=== PATIENT | female | born 1955 | race Caucasian/White ===

== ENCOUNTER 2023-05-09 07:55 | Emergency (ER) | payer MEDICARE, SELFPAY ==
[2023-05-09 08:00] VITALS: BP 148/98; PULSE 93; RESP 16; TEMP 36.9; O2SAT 100; BMI 26.5
--- NOTE | 2023-05-09 08:25 | ED_ITS ---
HPI - General Adult General Chief complaint: Upper Respiratory Infection Stated complaint: SORE THROAT/LOSS OF VOICE Time Seen by Provider: 05/09/23 08:10 Source: patient Mode of arrival: walk-in Limitations: no limitations History of Present Illness HPI narrative: 68-year-old female presents for hoarse voice that she has had for 3 weeks. She saw her PCP about it who put her on a course of steroids that did not get better. She has been referred to ENT physician but she is waiting for approval. No fever or cough. No vomiting or diarrhea. She is a non-smoker and not diabetic. Related Data Previous Rx's Medication Instructions Recorded prednisone 10 mg tablet See Rx Instructions .Route 05/09/23 .COMPLEX #30 tabs Allergies Allergy/AdvReac Type Severity Reaction Status Date / Time No Known Drug Allergies Allergy Verified 05/09/23 08:06 Review of Systems ROS Narrative A ten point review of systems is negative except as noted above. PFSH PFSH Social History Smoking status: Never smoker Exam Narrative Exam Narrative: Nurses note and vital signs reviewed and patient is not hypoxic. General: The patient appears well and in no apparent distress. Patient is rest ing comfortably sitting on the examination chair Skin: Warm, dry, no pallor noted. There is no rash noted. Head: Normocephalic, atraumatic Eye: Normal conjunctiva, no drainage Ears, Nose, Mouth, and Throat: oral mucosa is moist. Nares patent. Mouth without vesicles. Voice is hoarse. No pharyngeal erythema or swelling. Uvula midline. She is handling her oral secretions well. No retropharyngeal swelling. Cardiovascular: Regular Rate and Rhythm Respiratory: Patient is in no distress, no accessory muscle use, lungs are clear to auscultation, no wheezing, rales or rhonchi GI: Soft and nontender Musculoskeletal: The patient has no evidence of calf tenderness, no pitting edema, symmetrical pulses noted bilaterally Neurological: A&O, normal speech Psychiatric: Cooperative Constitutional Vital Signs, click to edit/add: Last Vital Signs Temp 98.5 F 05/09/23 08:00 Pulse 93 H 05/09/23 08:00 Resp 16 05/09/23 08:00 BP 148/98 H 05/09/23 08:00 Pulse Ox 100 05/09/23 08:00 O2 Del Method Room Air 05/09/23 08:00 Course Vital Signs Vital signs: Vital Signs Temperature 98.5 F 05/09/23 08:00 Pulse Rate 93 H 05/09/23 08:00 Respiratory Rate 16 05/09/23 08:00 Blood Pressure 148/98 H 05/09/23 08:00 Pulse Oximetry 100 05/09/23 08:00 Oxygen Delivery Method Room Air 05/09/23 08:00 Temperature 98.5 F 05/09/23 08:00 Pulse Rate 93 H 05/09/23 08:00 Respiratory Rate 16 05/09/23 08:00 Blood Pressure 148/98 H 05/09/23 08:00 Pulse Oximetry 100 05/09/23 08:00 Oxygen Delivery Method Room Air 05/09/23 08:00 Medical Decision Making MDM Narrative Medical decision making narrative: The patient is given IM Solu-Medrol and prescribed prednisone. She was informed that if this does not improve she would need to follow-up with ENT and that process is already in place. There is no indication for imaging or antibiotics or any testing otherwise. Treatment diagnosis and follow-up were discussed with the patient. Differential Diagnosis Differential Diagnosis: Laryngitis, vocal cord mass Discharge Plan Discharge Chief Complaint: Upper Respiratory Infection Clinical Impression: Laryngitis Patient Disposition: Home, Self-Care Time of Disposition Decision: 08:22 Condition: Good Mode of Transportation: Private Vehicle Prescriptions / Home Meds: New prednisone 10 mg tablet See Rx Instructions .ROUTE .COMPLEX Qty: 30 0RF Rx Instructions: 4 by mouth daily for three days then 3 by mouth daily for three days then 2 by mouth daily for three days then 1 by mouth daily for three days Additional Instructions: Laryngitis Stand Alone Forms: Portal Instructions Referrals: NIRMAL BARAJAS [Primary Care Provider] - 1 week
[2023-05-09] MEDS: METHYLPREDNISOLONE SOD SUCC PF 125 MG/2 ML VIAL IM (08:28)
== END 2023-05-09 08:33 | disposition home or self-care (01) ==
PROVIDERS: Emergency Provider Emergency Medicine; PCP Internal Medicine
DX: J04.0 Acute laryngitis (principal)
CPT/HCPCS: 96374; 99284; J2930

== ENCOUNTER 2023-06-11 08:25 | Outpatient (OUT) | payer MEDICARE, SELFPAY ==
--- NOTE | 2023-06-11 08:28 | XR_ITS ---
[address] [address] Patient Name: SRINATH BAILEY MRN: [id number] date: 1955 Sex: F Assigned Patient Location: [facility] Current Patient Location: [facility] Accession/Order Number: [id number] Exam Date: 06/11/2023 08:40 Report Date: 06/11/2023 12:08 At the request of: FRANCES TELLEZ Procedure: XR DEXA axial skeleton EXAMINATION: XR DEXA axial skeleton, 06/11/2023 8:40 AM EDT HISTORY: Estrogen Deficiency E28.39 COMPARISON: 2021, 2019, 2017 TECHNIQUE: Dual-energy X-ray absorptiometry (DEXA) bone density study performed for the axial skeleton. HISTORY: Estrogen Deficiency E28.39 FINDINGS: Bone mineral density of the right femoral neck is 0.657 g/sq cm. T score -2.7. WHO classification: Osteoporosis Dual total femur bone mineral density is 0.730 g/sq cm. T score -2.2. WHO classification: Osteopenia XR/XR DEXA axial skeleton IMPRESSION: Osteoporosis. High fracture risk Electronically authenticated by: VICKY SOLORZANO Date: 06/11/2023 12:08
== END 2023-06-11 08:26 | disposition home or self-care (01) ==
LOC: RAD 08:25
PROVIDERS: PCP Internal Medicine; Visit Provider Physician Assistant
DX: E28.39 Other primary ovarian failure (principal); M81.0 Age-related osteoporosis without current pathological fracture
CPT/HCPCS: 77080

== ENCOUNTER 2023-07-11 11:12 | Outpatient (OUT) | payer MEDICARE, SELFPAY ==
--- NOTE | 2023-07-11 11:20 | MM_ITS ---
Patient Name: SRINATH BAILEY MR#: [id number] : 1955 Exam Date: 07/11/2023 Ordering Doctor: DR NIRMAL BARAJAS M.D. RADIOLOGY REPORT PROCEDURE: MM TOMOSYNTHESIS SCREENING BI COMPARISON: MG MAMM SCREEN 3D SOLIS CAD, 07/09/2022. MG MAMM SCREEN 3D SOILS CAD, 06/09/2021. MG MAMM SCREEN 3D SOLIS CAD, 06/07/2020. MG MAMM SOLIS SCRN W CAD DIG, 06/02/2013. INDICATIONS: Screening Calculator Name NCI Breast Cancer Risk Assessment Tool 5 Year Breast Cancer Risk 1.50% Lifetime Breast Cancer Risk 4.80% Personal Breast Cancer No Personal Ovarian Cancer No Treatments None Family Cancers Grandmother-maternal with breast cancer at age 60. LOCATION: [facility] BREAST COMPOSITION: There are scattered areas of fibroglandular density. FINDINGS: DIAGNOSTIC CATEGORY 2--BENIGN FINDING: RIGHT BREAST: No significant suspicious finding. Scattered benign-appearing calcifications are present. No significant change has occurred. LEFT BREAST: No significant suspicious finding. Scattered benign-appearing calcifications are present. Scattered benign-appearing lymph nodes are present. No significant change has occurred. RECOMMENDATIONS: ROUTINE MAMMOGRAM AND CLINICAL EVALUATION IN 12 MONTHS. PLEASE NOTE: A NORMAL MAMMOGRAM DOES NOT EXCLUDE THE POSSIBILITY OF BREAST CANCER. A CLINICALLY SUSPICIOUS PALPABLE LUMP SHOULD BE BIOPSIED. Dictated by: Anam Romano M.D. on 07/11/2023 at 16:01 Approved by: Anam Romano M.D. on 07/11/2023 at 16:14
== END 2023-07-11 11:13 | disposition home or self-care (01) ==
LOC: MAMMO 11:12
PROVIDERS: PCP Internal Medicine; Visit Provider Internal Medicine
DX: Z12.31 Encounter for screening mammogram for malignant neoplasm of breast (principal); Z80.3 Family history of malignant neoplasm of breast
CPT/HCPCS: 77063; 77067

== ENCOUNTER 2023-10-26 16:19 | Emergency (ER) | payer MEDICARE, SELFPAY ==
[2023-10-26 16:22] VITALS: BP 153/75; PULSE 86; O2SAT 96; BMI 25.5
--- NOTE | 2023-10-26 16:31 | CT_ITS ---
The [address] [address] Patient Name: SRINATH BAILEY MRN: [id number] date: 1955 Sex: F Assigned Patient Location: ED.MAIN Current Patient Location: ED.MAIN Accession/Order Number: [id number] Exam Date: 10/26/2023 16:51 Report Date: 10/26/2023 19:19 At the request of: FREEMAN SMALL Procedure: CT abdomen pelvis wo con EXAM: CT SCAN OF THE ABDOMEN AND PELVIS WITHOUT IV CONTRAST DATE OF EXAM: 10/26/2023 4:51 PM EDT HISTORY: left flank pain 68-year-old female with abdominal pain. Patient with left-sided flank pain. COMPARISON: None. TECHNIQUE: CT examination of the abdomen and pelvis with sagittal and coronal reformations was performed without intravenous contrast. CT dose lowering techniques were used, to include: automated exposure control, adjustment for patient size, and/or use of iterative reconstruction. CONTRAST: None. FINDINGS: Note: This exam is limited because some types of pathology may not be adequately demonstrated due to lack of contrast enhancement. Ball Worker/Lines & Tubes: Ball Worker demonstrates a nonobstructive bowel gas pattern. Lower Chest: Normal Free Air: None. Liver: The liver is enlarged. There is an area decreased attenuation which is seen in the region of the caudate lobe that measures 21 x 35 mm. Gallbladder: Removed Common Bile Duct: Normal Pancreas: Normal Spleen: Normal Adrenal Glands: Right: Normal. Left: Normal Kidneys: Right Kidney: Non obstructing bilateral nephrocalcinosis with a 3 mm stone in the lower pole may be vascular. Right Ureter: Normal. Left Kidney: Normal. Left Ureter: Normal. GI Tract: Distal Esophagus: Normal. Stomach: Normal Small Bowel: Normal Appendix: Normal coronal image 33 of series 5 Large Bowel: Diverticulosis. Mesentery/Peritoneum: Normal Vasculature: Vascular calcifications demonstrated. Lymph Nodes: Normal Abdominal Wall: Normal Bladder: Normal Reproductive: Normal Musculoskeletal: Osseous structures demonstrate anterolisthesis of L4 and L5. There is also compression fracture which does not appear to be acute L1. Free Fluid: None. CT/CT abdomen pelvis wo con IMPRESSION: 1. Diverticulosis. No CT evidence for acute diverticulitis. 2. Area decreased attenuation near the caudate lobe of the liver incompletely imaged on this exam. This is not completely typical for a cyst. Please correlate with patient's medical history. Multiphasic liver protocol MRI abdomen may help better delineate. 3. Nonobstructing right-sided nephrocalcinosis. 4. Normal appendix. Electronically authenticated by: ZEHRA FRIEND Date: 10/26/2023 19:19
--- NOTE | 2023-10-26 16:36 | ED_ITS ---
<Statement entered by Catarina Barfield MD - 10/26/23 19:23> This documentation has been reviewed and approved. HPI HPI - Back Pain/Injury General Chief Complaint: Back Pain/Injury Stated Complaint: SEVERE BACK PAIN Time Seen by Provider: 10/26/23 16:28 Source: patient Mode of arrival: walk-in History of Present Illness HPI Narrative: 68-year-old female presents here with a chief complaint of 1 day of left flank pain. Patient has a history of 2 L4 spine surgeries and 2016 2017. She states she was watching TV last evening went to bed and to start building a pulling or pain sensation. Denies any history of kidney stones. She has left flank pain today. Denies any nausea or vomiting. She denies any weakness. She has point tenderness to the left CVA region. Related Data Previous Rx's ?Medication ?Instructions ?Recorded prednisone 10 mg tablet See Rx Instructions .Route 05/09/23 .COMPLEX #30 tabs methocarbamol 500 mg tablet 500 mg PO TID PRN pain #10 tabs 10/26/23 prednisone 20 mg tablet 20 mg PO BID 7 days #14 tabs 10/26/23 Allergies Allergy/AdvReac Type Severity Reaction Status Date / Time No Known Drug Allergies Allergy Verified 05/09/23 08:06 Opioid HPI Opioid Management Most Recent Opioid Data: Last MAY Pain Assessment 10/26/23 18:14 Review of Systems ROS Narrative All Systems are negative except as noted/marked.All systems reviewed and otherwise negative PFSH PFS Social History Smoking status: Never smoker Exam Narrative Exam Narrative: Nurses note and vital signs reviewed and patient is not hypoxic. General: The patient appears well and in no apparent distress. Patient is resting comfortably on cart. Skin: Warm, dry, no pallor noted. There is no rash noted. Head: Normocephalic, atraumatic Eye: Normal conjunctiva, no drainage, EOMI. PERRL Ears, Nose, Mouth, and Throat: oral mucosa is moist. Nares patent. Mouth without vesicles. Ear canals patent. Tm's without Erythema Cardiovascular: Regular Rate and Rhythm Respiratory: Patient is in no distress, no accessory muscle use, lungs are clear to auscultation, no wheezing, rales or rhonchi Back: left flank pain, tender to palpation left cva GI: Normal bowel sounds, no tenderness to palpation, no masses appreciated. No rebound, guarding, or rigidity noted. Musculoskeletal:ambulating, no lower extremity weakness, The patient has no evidence of calf tenderness, no pitting edema, symmetrical pulses noted bilaterally Neurological: A&O x4, normal speech Psychiatric: Cooperative Constitutional Vital Signs, click to edit/add: Last Vital Signs Pulse 86 10/26/23 16:22 Resp 20 10/26/23 16:22 BP 153/75 H 10/26/23 16:22 Pulse Ox 96 10/26/23 16:22 O2 Del Method Room Air 10/26/23 16:22 Course Vital Signs Vital signs: Vital Signs Pulse Rate 86 10/26/23 16:22 Respiratory Rate 20 10/26/23 16:22 Blood Pressure 153/75 H 10/26/23 16:22 Pulse Oximetry 96 10/26/23 16:22 Oxygen Delivery Method Room Air 10/26/23 16:22 Pulse Rate 86 10/26/23 16:22 Respiratory Rate 20 10/26/23 16:22 Blood Pressure 153/75 H 10/26/23 16:22 Pulse Oximetry 96 10/26/23 16:22 Oxygen Delivery Method Room Air 10/26/23 16:22 MDM - Back Pain/Injury MDM Narrative Medical decision making narrative: 68-year-old female presents here with a chief complaint of 1 day of left flank pain. Patient has a history of 2 L4 spine surgeries and 2016 2017. She states she was watching TV last evening went to bed and to start building a pulling or pain sensation. Denies any history of kidney stones. She has left flank pain today. Denies any nausea or vomiting. She denies any weakness. She has point tenderness to the left CVA region. Patient presented here to the emergency room chief complaint of lower lumbar pain she has a history of back issues with 2 previous surgeries to the L4-L5 region. CT scan was performed today delay of treatment was due to waiting on CT results CT abdomen pelvis was performed patient was given IV Toradol morphine and Zofran for her pain. Her symptoms have improved. Patient will follow-up with her primary care physician and then reach out to [facility] orthopedics. She had seen a lumbar specialist in [place] previously but they are no longer in practice. Patient showed no signs of quad equina denied any numbness ting or loss of bowel or bladder function. She stable to be discharged to home. Reasons to return to the emergency room were discussed. Patient was also made aware that there is a cyst on her liver that needs also to be reevaluated by her primary care physician and possibly have MRI in the future. Patient agrees with plan of care. Differential Diagnosis Differential diagnosis: Likely lumbar radiculopathy, sciatica, strain of lumbar region and pyelonephritis Medical Records Attestation: I reviewed the patient's medical records. Lab Data Attestation: I reviewed the patient's lab results. Labs: Lab Results 10/26/23 10/26/23 Range/Units 16:40 16:46 WBC 8.7 (4.0-11.0) 10^3/uL RBC 4.58 (4.20-5.40) 10^6/uL Hgb 14.1 (12.0-16.0) g/dL Hct 41.9 (36.0-48.0) % MCV 91.5 (81.0-99.0) fL MCH 30.8 (26.7-34.0) pg MCHC 33.7 (29.9-35.2) g/dL RDW 13.4 (11.0-15.0) % Plt Count 227 (150-450) 10^3/uL MPV 10.8 (9.5-13.5) fL Neut % (Auto) 61.2 (43.0-75.0) % Lymph % (Auto) 24.5 (20.5-60.0) % [place] % (Auto) 8.6 (1.7-12.0) % Eos % (Auto) 4.6 (0.9-7.0) % Baso % (Auto) 0.8 (0.2-2.0) % Neut # (Auto) 5.3 (1.4-6.5) 10^3/uL Lymph # (Auto) 2.1 (1.2-3.8) 10^3/uL [place] # (Auto) 0.7 (0.3-0.8) 10^3/uL Eos # (Auto) 0.4 (0.0-0.7) 10^3/uL Baso # (Auto) 0.1 (0.0-0.1) 10^3/uL Abs Immat Gran (auto) 0.03 (0.00-0.03) 10^3/uL Imm/Tot Granulo (auto) 0.3 (0.0-0.5) % Sodium 140 (136-145) mmol/L Potassium 4.0 (3.5-5.1) mmol/L Chloride 103 (98-107) mmol/L Carbon Dioxide 26.8 (21.0-32.0) mmol/L Anion Gap 14.2 BUN 13.0 (7.0-18.0) mg/dL Creatinine 0.67 (0.55-1.02) mg/dL Est GFR ( Amer) >60 (>=60) Est GFR (Non-Af Amer) >60 (>=60) BUN/Creatinine Ratio 19.4 Glucose 91 (74-106) mg/dL Calcium 9.2 (8.5-10.1) mg/dL Total Bilirubin 0.7 (0.2-1.0) mg/dL AST 28 (15-37) U/L ALT 42 (14-59) U/L Alkaline Phosphatase 90 (46-116) U/L Total Protein 7.1 (6.4-8.2) g/dL Albumin 3.7 (3.4-5.0) g/dL Globulin 3.4 g/dL Albumin/Globulin Ratio 1.1 Urine Color Lt. yellow (YELLOW) Urine Clarity Clear (CLEAR) Urine pH 6.0 (5.0-9.0) Ur Specific [place] <=1.005 A (1.005-1.025) Urine Protein Negative (NEG/TRACE) mg/dL Urine Glucose (UA) Negative (NEGATIVE) mg/dL Urine Ketones Negative (NEGATIVE) mg/dL Urine Occult Blood Negative (NEGATIVE) Urine Nitrite Negative (NEGATIVE) Urine Bilirubin Negative (NEGATIVE) Urine Urobilinogen 0.2 (0.2-1.0) EU/dL Ur Leukocyte Esterase Negative (NEGATIVE) Urine RBC 0-2 (0-2) #/HPF Urine WBC None seen (NONE SEEN) #/HPF Ur Squamous Epith Cells Rare (NONE/RARE) #/LPF Urine Crystals None seen (None Seen) #/HPF Urine Bacteria None seen (NONE SEEN) #/HPF Urine Casts None seen (NONE SEEN) #/LPF Urine Mucus None seen (NONE SEEN) Imaging Data CT scan - abdomen: Radiologist's impression: ITS Impressions Abdomen/Pelvis CT 10/26/23 16:31 IMPRESSION: 1. Diverticulosis. No CT evidence for acute diverticulitis. 2. Area decreased attenuation near the caudate lobe of the liver incompletely imaged on this exam. This is not completely typical for a cyst. Please correlate with patient's medical history. Multiphasic liver protocol MRI abdomen may help better delineate. 3. Nonobstructing right-sided nephrocalcinosis. 4. Normal appendix. Electronically authenticated by: ZEHRA FRIEND Date: 10/26/2023 19:19 Discharge Plan Discharge Stand Alone Forms: Portal Instructions Chief Complaint: Back Pain/Injury Clinical Impression: Back pain Patient Disposition: Home, Self-Care Time of Disposition Decision: 19:33 Condition: Good Prescriptions / Home Meds: New prednisone 20 mg tablet 20 mg PO BID 7 Days Qty: 14 0RF methocarbamol 500 mg tablet 500 mg PO TID PRN (Reason: pain) Qty: 10 0RF No Action prednisone 10 mg tablet See Rx Instructions .ROUTE .COMPLEX Qty: 30 0RF Rx Instructions: 4 by mouth daily for three days then 3 by mouth daily for three days then 2 by mouth daily for three days then 1 by mouth daily for three days Print Language: Welsh Instructions: Acute Low Back Pain (ED), Back Pain (ED) Referrals: NIRMAL BARAJAS [Primary Care Provider] - 1 week
[2023-10-26] MEDS: ONDANSETRON PF 4 MG/2 ML VIAL IV (16:46)
[2023-10-26] MEDS: KETOROLAC TROMETHAMINE 30 MG/ML VIAL IVP (16:46)
[2023-10-26] MEDS: 0.9 % SODIUM CHLORIDE 1,000 ML 1000 ML IV (16:46)
[2023-10-26 16:56] LABS: Basophils Absolute Auto 0.1 10^3/uL (0.0-0.1); Basophils Percent Auto 0.8 % (0.2-2.0); Eosinophils Absolute Auto 0.4 10^3/uL (0.0-0.7); Eosinophils Percent Auto 4.6 % (0.9-7.0); Hematocrit 41.9 % (36.0-48.0); Hemoglobin 14.1 g/dL (12.0-16.0); Immature Granulocytes Abs Auto 0.03 10^3/uL (0.00-0.03); Immature Granulocytes Pct Auto 0.3 % (0.0-0.5); Lymphocytes Absolute Auto 2.1 10^3/uL (1.2-3.8); Lymphocytes Percent Auto 24.5 % (20.5-60.0); Mean Corpuscular HGB Conc 33.7 g/dL (29.9-35.2); Mean Corpuscular Hemoglobin 30.8 pg (26.7-34.0); Mean Corpuscular Volume 91.5 fL (81.0-99.0); Mean Platelet Volume 10.8 fL (9.5-13.5); Monocytes Absolute Auto 0.7 10^3/uL (0.3-0.8); Monocytes Percent Auto 8.6 % (1.7-12.0); Neutrophils Absolute Auto 5.3 10^3/uL (1.4-6.5); Neutrophils Percent Auto 61.2 % (43.0-75.0); Platelet Count 227 10^3/uL (150-450); Red Blood Count 4.58 10^6/uL (4.20-5.40); Red Cell Distribution Width 13.4 % (11.0-15.0); White Blood Count 8.7 10^3/uL (4.0-11.0)
[2023-10-26 16:57] LABS: Bilirubin Urine NEGATIVE (NEGATIVE); Blood Urine NEGATIVE (NEGATIVE); Clarity Urine CLEAR (CLEAR); Color Urine LT. YELLOW (YELLOW); Glucose Urine UA NEGATIVE (NEGATIVE); Ketones Urine NEGATIVE (NEGATIVE); Leukocyte Esterase Urine NEGATIVE (NEGATIVE); Nitrite Urine NEGATIVE (NEGATIVE); Protein Urine NEGATIVE (NEG/TRACE); Specific Gravity Urine <=1.005 (1.005-1.025); Urobilinogen Urine 0.2 EU/dL (0.2-1.0)
[2023-10-26 17:08] LABS: Alanine Aminotransferase 42 U/L (14-59); Albumin Globulin Ratio 1.1; Albumin Level 3.7 g/dL (3.4-5.0); Alkaline Phosphatase 90 U/L (46-116); Anion Gap 14.2; Aspartate Amino Transferase 28 U/L (15-37); BUN Creatinine Ratio 19.4; Bilirubin Total 0.7 mg/dL (0.2-1.0); Calcium 9.2 mg/dL (8.5-10.1); Carbon Dioxide 26.8 mmol/L (21.0-32.0); Chloride 103 mmol/L (98-107); Estimated GFR (African America >60 (>=60); Estimated GFR (Non-African Ame >60 (>=60); Globulin 3.4 g/dL; Glucose 91 mg/dL (74-106); Sodium 140 mmol/L (136-145); Total Protein 7.1 g/dL (6.4-8.2)
[2023-10-26 17:11] LABS: Bacteria Urine NONE SEEN #/HPF (NONE SEEN); Cast Seen? NONE SEEN #/LPF (NONE SEEN); Crystals Seen? None Seen #/HPF (None Seen); Mucus Urine NONE SEEN (NONE SEEN); RBC Urine 0-2 #/HPF (0-2); Squamous Epithelial Cell Urine RARE #/LPF (NONE/RARE); WBC Urine NONE SEEN #/HPF (NONE SEEN)
[2023-10-26] MEDS: CYCLOBENZAPRINE HCL 10 MG TABLET PO (18:14)
[2023-10-26] MEDS: MORPHINE SULFATE 2 MG/ML SYRINGE IV (18:14)
[2023-10-26] MEDS: OXYCODONE HCL/ACETAMINOPHEN 5MG/325MG 1 TAB PO (19:51)
== END 2023-10-26 20:02 | disposition home or self-care (01) ==
PROVIDERS: Physician Assistant; Emergency Provider Emergency Medicine; PCP Internal Medicine
DX: M54.9 Dorsalgia, unspecified (principal); Z98.890 Other specified postprocedural states
CPT/HCPCS: 36415; 74176; 80053; 81001; 85025; 96374; 96375; 99285; J1885; J2270; J2405

== ENCOUNTER 2023-10-31 06:13 | Observation (INO) | payer MEDICARE, SELFPAY ==
[2023-10-31] VITALS (8 sets, daily range): BP systolic 104–174; BP diastolic 67–93; PULSE 68–95; TEMP 36.2–36.6; O2SAT 93–98; BMI 25.9; BMI 27.0
--- NOTE | 2023-10-31 06:46 | ED.GENADUL1 ---
HPI HPI - General Adult General Chief complaint: Back Pain/Injury Stated complaint: BACK PAIN Time Seen by Provider: 10/31/23 06:18 Source: patient and family Mode of arrival: walk-in Limitations: no limitations History of Present Illness HPI narrative: This 68-year-old female presents for evaluation of ongoing left-sided low back pain. The patient was seen here on Saturday for the pain. She has had 2 back surgeries in the past. She is tender in the left lower sacroiliac lumbar region that radiates down into her left lateral leg. She denies any injury. She has no loss of bowel or bladder control. She denies any weakness or numbness. She has not had any fever. She was given a prescription for Percocet and steroids and Robaxin when she was seen on Saturday in this emergency department. She then followed up with the nurse practitioner at her family physician's office and a requisition for an MRI was sent to her insurance company. She does not know when she is supposed to get the MRI. She had spine surgery twice on the L4-L5 vertebrae for pain that she states was similar to this. That was performed in [place] at the [facility] [place] which has since closed. She denies any chest pain or shortness of breath. She is anxious, tearful. Her request that I find out if her MRI has been approved by the insurance company and also request that she be admitted for pain control. Related Data Previous Rx's ?Medication ?Instructions ?Recorded prednisone 10 mg tablet See Rx Instructions .Route 05/09/23 .COMPLEX #30 tabs methocarbamol 500 mg tablet 500 mg PO TID PRN pain #10 tabs 10/26/23 prednisone 20 mg tablet 20 mg PO BID 7 days #14 tabs 10/26/23 Allergies Allergy/AdvReac Type Severity Reaction Status Date / Time No Known Drug Allergies Allergy Verified 10/31/23 06:20 Opioid HPI Opioid Management Risks, benefits, and alternatives of opioids discussed: Yes Review of Systems ROS Status of ROS 10 or more systems reviewed and unremarkable except as noted in history and below PFSH PFSH Social History Smoking status: Never smoker Exam Narrative Exam Narrative: Vital signs and Nursing Notes reviewed: Patient is afebrile with a normal pulse, blood pressure is elevated at 174/93, she is not hypoxic with pulse ox of 98% on room air General: Awake, alert, oriented, thin female, she is uncomfortable appearing and tearful, no respiratory distress HEENT: Normocephalic atraumatic, mucous membranes are moist and pink, eyes are clear, normal conjunctiva, vision is grossly intact Neck: Supple, no meningeal signs, no anterior or posterior cervical lymphadenopathy Chest: Lungs are clear to auscultation with good air entry, there is no wheezing rhonchi or rales appreciated no accessory muscle use, patient is speaking in complete sentences-no chest wall tenderness to palpation CVS: Regular rate and rhythm S1-S2, no murmurs rubs or gallops, pulses are brisk and equal bilaterally ABD: Soft, nondistended, nontender, no rebound guarding or rigidity, bowel sounds are normal, no pulsatile masses appreciated Extremities: Moving all extremities, no lower extremity tenderness or swelling noted, negative Homans' sign, pulses are brisk and equal bilaterally Musc: There is tenderness in the left lateral lumbar and sacroiliac region, there is no midline bony vertebral tenderness or step-off, there is no skin rash in this area, there is also tenderness in the lateral trochanteric aspect. She is able to raise both legs independently. There is no saddle anesthesia. Push pull of the lower extremity is normal. Skin: Normal in appearance without rash,pallor, petechiae or purpura Neuro: No focal deficits Constitutional Vital Signs, click to edit/add: Last Vital Signs Temp 97.9 F 10/31/23 06:17 Pulse 95 H 10/31/23 06:17 Resp 20 10/31/23 06:17 BP 174/93 H 10/31/23 06:17 Pulse Ox 98 10/31/23 06:17 O2 Del Method Room Air 10/31/23 06:17 Course Vital Signs Vital signs: Vital Signs Temperature 97.9 F 10/31/23 06:17 Pulse Rate 95 H 10/31/23 06:17 Respiratory Rate 20 10/31/23 06:17 Blood Pressure 174/93 H 10/31/23 06:17 Pulse Oximetry 98 10/31/23 06:17 Oxygen Delivery Method Room Air 10/31/23 06:17 Temperature 97.9 F 10/31/23 06:17 Pulse Rate 95 H 10/31/23 06:17 Respiratory Rate 20 10/31/23 06:17 Blood Pressure 174/93 H 10/31/23 06:17 Pulse Oximetry 98 10/31/23 06:17 Oxygen Delivery Method Room Air 10/31/23 06:17 Medical Decision Making Medical Records Medical records reviewed: Yes I reviewed the patient's medical records Discharge Plan Discharge Chief Complaint: Back Pain/Injury Clinical Impression: Lumbar radiculopathy Patient Disposition: Still a Patient Prescriptions / Home Meds: No Action prednisone 10 mg tablet See Rx Instructions .ROUTE .COMPLEX Qty: 30 0RF Rx Instructions: 4 by mouth daily for three days then 3 by mouth daily for three days then 2 by mouth daily for three days then 1 by mouth daily for three days prednisone 20 mg tablet 20 mg PO BID 7 Days Qty: 14 0RF methocarbamol 500 mg tablet 500 mg PO TID PRN (Reason: pain) Qty: 10 0RF Print Language: Macedonian Referrals: NIRMAL BARAJAS [Primary Care Provider] - 1 week
[2023-10-31] MEDS: 0.9 % SODIUM CHLORIDE 1,000 ML 1000 ML IV (06:53)
[2023-10-31] MEDS: KETOROLAC TROMETHAMINE 30 MG/ML VIAL IVP ×3 (07:01→19:39)
[2023-10-31] MEDS: ONDANSETRON PF 4 MG/2 ML VIAL IV (07:01)
[2023-10-31] MEDS: HYDROMORPHONE HCL 1 MG/ML CARTRIDGE IV (07:01)
[2023-10-31] MEDS: DIAZEPAM 5 MG TABLET PO (07:01)
[2023-10-31] MEDS: MORPHINE SULFATE 2 MG/ML SYRINGE IV (09:12)
--- NOTE | 2023-10-31 09:46 | P.HP_ITS ---
HPI H&P: HPI History of Present Illness Chief complaint: BACK PAIN Narrative: Patient presented to the emergency room with increasing low back pain. This has been going on the last for 5 days. No inciting injury. She saw her PCP who is working on getting an outpatient MRI scan. Medications given at home not effective. She was given IV medications in the emergency room and still unable to ambulate. No loss of bowel or bladder control. When I saw patient in the emergency room, she was resting fairly comfortably in bed, did have pain with any motion in the bed. Opioid HPI Opioid Management Most Recent Pain and Opioid Data: Last MAY Pain Assessment 10/31/23 09:12 PFSH PFS Social History Smoking status: Never smoker Meds Home Medications and Allergies Home Medications ?Medication ?Instructions ?Recorded ?Confirmed ?Type prednisone 10 mg tablet See Rx Instructions .Route 05/09/23 10/31/23 Rx .COMPLEX #30 tabs methocarbamol 500 mg tablet 500 mg PO TID PRN pain #10 tabs 10/26/23 10/31/23 Rx prednisone 20 mg tablet 20 mg PO BID 7 days #14 tabs 10/26/23 10/31/23 Rx alendronate 70 mg tablet mg PO 10/31/23 History azelastine 137 mcg (0.1 %) nasal intranasal 10/31/23 History spray budesonide 160 mcg-glycopyr 9 inh inhalation 10/31/23 History mcg-formot 4.8 mcg/actuation HFA inhaler (Breztri Aerosphere) famotidine 20 mg tablet mg 10/31/23 History montelukast 10 mg tablet mg 10/31/23 History oxycodone-acetaminophen 5 mg-325 tab 10/31/23 History mg tablet pramipexole 1 mg tablet mg 10/31/23 History rosuvastatin 20 mg tablet mg 10/31/23 History tramadol 50 mg tablet mg 10/31/23 History Allergies Allergy/AdvReac Type Severity Reaction Status Date / Time No Known Drug Allergies Allergy Verified 10/31/23 06:20 Exam Constitutional Vital Signs, click to edit/add: Last Vital Signs Temp 97.9 F 10/31/23 06:17 Pulse 95 H 10/31/23 06:17 Resp 20 10/31/23 06:17 BP 146/77 H 10/31/23 09:31 Pulse Ox 98 10/31/23 06:17 O2 Del Method Room Air 10/31/23 06:17 Documenting provider has reviewed patient's vital signs: yes Common normals: apparent distress (Painful distress) Chest Common normals: inspection of chest normal Respiratory Common normals: normal respiratory effort and no retractions Cardio Common normals: regular rate, regular rhythm and no murmurs GI Common normals: Normal to inspection, nondistended, normoactive bowel sounds present Back & Pelvis Common normals: no CVA tenderness (Poor range of motion secondary to back pain. + right straight leg raise) Neuro Common normals: oriented x3, CN's II-XII intact bilaterally, moves all extremities and no focal motor deficits Assessment and Plan Assessment and Plan (1) Back pain: (2) Lumbar radiculopathy: Plan Admission findings: Sinus tachycardia, uncontrolled hypertension secondary to intractable low back pain with positive radiculopathy into right leg with positive straight leg but no motor deficits. Admit patient for Toradol, steroids, tizanidine. Physical therapy. Constipation-will try MiraLAX Asthma-uses home medications Hypercholesterolemia-Home medications Check on lab results Admission status: Patient admitted with intractable low back pain. Physical therapy, IV medications, medically necessary treatment likely to span 1 midnight. Observation status.
[2023-10-31 10:07] LABS: Basophils Absolute Auto 0.1 10^3/uL (0.0-0.1); Basophils Percent Auto 0.7 % (0.2-2.0); Eosinophils Absolute Auto 0.2 10^3/uL (0.0-0.7); Hematocrit 40.8 % (36.0-48.0); Hemoglobin 13.6 g/dL (12.0-16.0); Immature Granulocytes Abs Auto 0.03 10^3/uL (0.00-0.03); Immature Granulocytes Pct Auto 0.4 % (0.0-0.5); Lymphocytes Absolute Auto 2.1 10^3/uL (1.2-3.8); Lymphocytes Percent Auto 29.9 % (20.5-60.0); Mean Corpuscular HGB Conc 33.3 g/dL (29.9-35.2); Mean Corpuscular Hemoglobin 30.8 pg (26.7-34.0); Mean Corpuscular Volume 92.3 fL (81.0-99.0); Mean Platelet Volume 10.4 fL (9.5-13.5); Monocytes Absolute Auto 0.6 10^3/uL (0.3-0.8); Monocytes Percent Auto 7.8 % (1.7-12.0); Neutrophils Absolute Auto 4.1 10^3/uL (1.4-6.5); Neutrophils Percent Auto 58.2 % (43.0-75.0); Platelet Count 200 10^3/uL (150-450); Red Blood Count 4.42 10^6/uL (4.20-5.40); Red Cell Distribution Width 13.4 % (11.0-15.0); White Blood Count 7.1 10^3/uL (4.0-11.0)
[2023-10-31 11:04] LABS: Alanine Aminotransferase 40 U/L (14-59); Albumin Globulin Ratio 0.9; Albumin Level 3.3 g/dL (3.4-5.0); Alkaline Phosphatase 74 U/L (46-116); Anion Gap 8.6; Aspartate Amino Transferase 28 U/L (15-37); BUN Creatinine Ratio 26.3; Bilirubin Total 0.7 mg/dL (0.2-1.0); C Reactive Protein <0.50 mg/dL (<=0.50); Calcium 8.7 mg/dL (8.5-10.1); Carbon Dioxide 28.2 mmol/L (21.0-32.0); Chloride 102 mmol/L (98-107); Estimated GFR (African America >60 (>=60); Estimated GFR (Non-African Ame >60 (>=60); Globulin 3.5 g/dL; Glucose 94 mg/dL (74-106); Potassium 3.8 mmol/L (3.5-5.1); Sodium 135 mmol/L (136-145); Total Protein 6.8 g/dL (6.4-8.2)
[2023-10-31] MEDS: METHYLPREDNISOLONE SOD SUCC PF 125 MG/2 ML VIAL IVP ×3 (11:04→23:13)
[2023-10-31 12:58] LABS: Bilirubin Urine NEGATIVE (NEGATIVE); Blood Urine NEGATIVE (NEGATIVE); Clarity Urine CLEAR (CLEAR); Color Urine LT. YELLOW (YELLOW); Glucose Urine UA NEGATIVE (NEGATIVE); Ketones Urine NEGATIVE (NEGATIVE); Leukocyte Esterase Urine TRACE (NEGATIVE); Nitrite Urine NEGATIVE (NEGATIVE); Protein Urine NEGATIVE (NEG/TRACE); Specific Gravity Urine 1.015 (1.005-1.025); Urobilinogen Urine 0.2 EU/dL (0.2-1.0)
[2023-10-31] MEDS: LACTULOSE 10 GM/15 ML UD CUP 30 GM PO ×2 (13:02→21:11)
[2023-10-31 13:24] LABS: Bacteria Urine TRACE #/HPF (NONE SEEN); Cast Seen? NONE SEEN #/LPF (NONE SEEN); Crystals Seen? None Seen #/HPF (None Seen); Mucus Urine NONE SEEN (NONE SEEN); RBC Urine 0-2 #/HPF (0-2); Squamous Epithelial Cell Urine RARE #/LPF (NONE/RARE); WBC Urine 0-2 #/HPF (NONE SEEN)
--- NOTE | 2023-10-31 15:07 | SWNOTE1 ---
Medicare Outpatient Observation Notice reviewed and discussed with patient. Pt. verbalized understanding and signed the form. Original given to patient and copy placed in patient?s chart. SW met with pt to discuss dc needs. Pt lives at home with her . She is independent at home. She had 2 back surgeries in 2019. She has been doing great up until Saturday when started having pain again. Pt does not use any DME at home. Possible need for a walker at home, but per patient she does not feel she needs one. At this time pt has no anticipated discharge needs.
[2023-10-31] MEDS: IPRATROPIUM/ALBUTEROL SULFATE 3 ML AMPUL.NEB IH ×2 (16:49→23:18)
[2023-10-31] MEDS: FLUTICASONE PROPIONATE 50 MCG NASAL SPRAY 2 SPRAY NS (21:11)
[2023-10-31] MEDS: PRAMIPEXOLE 1 MG TABLET PO (21:11)
[2023-10-31] MEDS: TIZANIDINE HCL 4 MG TABLET PO (21:11)
[2023-10-31] MEDS: FAMOTIDINE 20 MG TABLET PO (21:11)
[2023-10-31] MEDS: BUDESONIDE 0.5 MG/2 ML AMPULE NEB IH (23:18)
[2023-11-01] MEDS: KETOROLAC TROMETHAMINE 30 MG/ML VIAL IVP ×2 (03:10→08:26)
[2023-11-01 03:14] VITALS: BP 138/60; PULSE 85; TEMP 36.5; O2SAT 96
[2023-11-01 04:53] VITALS: O2SAT 95
[2023-11-01] MEDS: OMEPRAZOLE 40 MG CAPSULE.DR PO (05:57)
[2023-11-01] MEDS: METHYLPREDNISOLONE SOD SUCC PF 125 MG/2 ML VIAL IVP (05:57)
[2023-11-01] MEDS: TIZANIDINE HCL 4 MG TABLET PO (05:57)
[2023-11-01 06:21] LABS: Basophils Percent Auto 0.2 % (0.2-2.0); Hematocrit 41.7 % (36.0-48.0); Hemoglobin 14.1 g/dL (12.0-16.0); Immature Granulocytes Abs Auto 0.05 10^3/uL (0.00-0.03); Immature Granulocytes Pct Auto 0.4 % (0.0-0.5); Lymphocytes Absolute Auto 0.7 10^3/uL (1.2-3.8); Mean Corpuscular HGB Conc 33.8 g/dL (29.9-35.2); Mean Corpuscular Hemoglobin 30.5 pg (26.7-34.0); Mean Corpuscular Volume 90.1 fL (81.0-99.0); Mean Platelet Volume 11.1 fL (9.5-13.5); Monocytes Absolute Auto 0.3 10^3/uL (0.3-0.8); Monocytes Percent Auto 2.3 % (1.7-12.0); Neutrophils Absolute Auto 12.2 10^3/uL (1.4-6.5); Neutrophils Percent Auto 92.1 % (43.0-75.0); Platelet Count 226 10^3/uL (150-450); Red Blood Count 4.63 10^6/uL (4.20-5.40); Red Cell Distribution Width 13.3 % (11.0-15.0); White Blood Count 13.2 10^3/uL (4.0-11.0)
[2023-11-01 06:39] LABS: Alanine Aminotransferase 46 U/L (14-59); Albumin Globulin Ratio 0.9; Albumin Level 3.3 g/dL (3.4-5.0); Alkaline Phosphatase 79 U/L (46-116); Aspartate Amino Transferase 26 U/L (15-37); BUN Creatinine Ratio 21.7; Bilirubin Total 0.5 mg/dL (0.2-1.0); Calcium 9.4 mg/dL (8.5-10.1); Carbon Dioxide 26.6 mmol/L (21.0-32.0); Chloride 102 mmol/L (98-107); Estimated GFR (African America >60 (>=60); Estimated GFR (Non-African Ame >60 (>=60); Globulin 3.8 g/dL; Glucose 142 mg/dL (74-106); Potassium 3.6 mmol/L (3.5-5.1); Sodium 136 mmol/L (136-145); Total Protein 7.1 g/dL (6.4-8.2)
[2023-11-01 07:38] VITALS: BP 130/71; PULSE 81; TEMP 36.4; O2SAT 95
[2023-11-01] MEDS: FAMOTIDINE 20 MG TABLET PO (08:27)
[2023-11-01] MEDS: MONTELUKAST SODIUM 10 MG TABLET PO (08:27)
--- NOTE | 2023-11-01 08:49 | CM.NOTE ---
Rounds made with Dr. Slaughter, pt will discharge to home today. No discharge needs identified.
--- NOTE | 2023-11-01 09:08 | P.DS_ITS ---
DS: Providers Provider Date of admission: 10/31/23 09:17 Primary care physician: NIRMAL BARAJAS Consults: 10/31/23 09:46 Consult to Pharmacy Routine Consulting Provider: Reason for consultation: Please [place] me when Med Rec is Updated Has provider been notified: No Occupational Therapy Eval and Treat Routine Reason for consultation: Only if needed for Rehab Has provider been notified: No Physical Therapy Eval and Treat Routine Reason for consultation: Eval and Treat Has provider been notified: No DS: Diagnosis Discharge Diagnosis (1) Back pain: (2) Lumbar radiculopathy: Plan Admission findings: Sinus tachycardia, uncontrolled hypertension secondary to intractable low back pain with positive radiculopathy into right leg with positive straight leg but no motor deficits. Admit patient for Toradol, steroids, tizanidine. Physical therapy. Constipation-will try MiraLAX Asthma-uses home medications Hypercholesterolemia-Home medications Check on lab results Admission status: Patient admitted with intractable low back pain. Physical therapy, IV medications, medically necessary treatment likely to span 1 midnight. Observation status. ? DS: Summary Hospital Course Hospital Course: Patient seen and evaluated in the emergency room, she has been dealing with low back pain for about a week now. She has a history of it in the past. Does feel similar to her previous surgery. She has been awaiting approval for MRI scan. She was admitted overnight for intractable pain, treated with steroids, Toradol, tizanidine. Her pain is much improved this morning. The plan is to have her work with physical therapy, if ambulating safely she can be discharged to home on diclofenac, and tapering doses of steroids and the tizanidine. Follow-up with her PCP next week. Still would recommend persisting with getting MRI scan completed. Status at Discharge Overall status at discharge: patient is not back to baseline Time Spent with Patient Time attestation: Total time spent providing and/or coordinating discharge services: Time spent: greater than 30 minutes Exam Constitutional Vital Signs, click to edit/add: Last Vital Signs Temp 97.6 F 11/01/23 07:38 Pulse 81 11/01/23 07:38 Resp 18 11/01/23 07:38 BP 130/71 11/01/23 07:38 Pulse Ox 95 11/01/23 07:38 O2 Del Method Room Air 11/01/23 07:38 Documenting provider has reviewed patient's vital signs: yes Common normals: apparent distress (Painful distress improved but persisting with some activity) Chest Common normals: inspection of chest normal Respiratory Common normals: normal respiratory effort and no retractions Cardio Common normals: regular rate, regular rhythm and no murmurs GI Common normals: Normal to inspection, nondistended, normoactive bowel sounds present Back & Pelvis Common normals: no CVA tenderness (Poor range of motion secondary to back pain. + right straight leg raise) Neuro Common normals: oriented x3, CN's II-XII intact bilaterally, moves all extremities and no focal motor deficits DS: Data Data Completed and Pending Labs on day of discharge: Labs from last 24 hours 11/01/23 10/31/23 10/31/23 05:56 11:30 10:00 WBC 13.2 H 7.1 RBC 4.63 4.42 Hgb 14.1 13.6 Hct 41.7 40.8 MCV 90.1 92.3 MCH 30.5 30.8 MCHC 33.8 33.3 RDW 13.3 13.4 Plt Count 226 200 MPV 11.1 10.4 Neut % (Auto) 92.1 H 58.2 Lymph % (Auto) 5.0 L 29.9 [place] % (Auto) 2.3 7.8 Eos % (Auto) 0.0 L 3.0 Baso % (Auto) 0.2 0.7 Neut # (Auto) 12.2 H 4.1 Lymph # (Auto) 0.7 L 2.1 [place] # (Auto) 0.3 0.6 Eos # (Auto) 0.0 0.2 Baso # (Auto) 0.0 0.1 Abs Immat Gran (auto) 0.05 H 0.03 Imm/Tot Granulo (auto) 0.4 0.4 Sodium 136 135 L Potassium 3.6 3.8 Chloride 102 102 Carbon Dioxide 26.6 28.2 Anion Gap 11.0 8.6 BUN 15.0 15.0 Creatinine 0.69 0.57 Est GFR ( Amer) >60 >60 Est GFR (Non-Af Amer) >60 >60 BUN/Creatinine Ratio 21.7 26.3 Glucose 142 H 94 Calcium 9.4 8.7 Total Bilirubin 0.5 0.7 AST 26 28 ALT 46 40 Alkaline Phosphatase 79 74 C-Reactive Protein <0.50 Total Protein 7.1 6.8 Albumin 3.3 L 3.3 L Globulin 3.8 3.5 Albumin/Globulin Ratio 0.9 0.9 Urine Color Lt. yellow Urine Clarity Clear Urine pH 7.0 Ur Specific [place] 1.015 Urine Protein Negative Urine Glucose (UA) Negative Urine Ketones Negative Urine Occult Blood Negative Urine Nitrite Negative Urine Bilirubin Negative Urine Urobilinogen 0.2 Ur Leukocyte Esterase Trace A Urine RBC 0-2 Urine WBC 0-2 A Ur Squamous Epith Cells Rare Urine Crystals None seen Urine Bacteria Trace A Urine Casts None seen Urine Mucus None seen Discharge Plan Discharge Disposition: Home, Self-Care Condition: Good Discharge Medications: New prednisone 10 mg tablet 50 mg PO DAILY Qty: 47 0RF Rx Instructions: 5/day for 3 days. 4/day for 3 days, 3/day for 3 days, 2/day for 3 days, 1/day for 3 days, 1/2 /day for 4 days diclofenac sodium 75 mg tablet,delayed release (DR/EC) 75 mg PO BID PRN (Reason: back pain) Qty: 60 11RF Continued prednisone 20 mg tablet 20 mg PO BID 7 Days Qty: 14 0RF Patient Comments: 10/27/23-11/02/23 pramipexole 1 mg tablet 1 mg PO .qhs alendronate 70 mg tablet 70 mg PO QWEEK Patient Comments: on saturdays tramadol 50 mg tablet 50 mg PO Q6H PRN (Reason: pain) famotidine 20 mg tablet 20 mg PO BID montelukast 10 mg tablet 10 mg PO DAILY azelastine 137 mcg (0.1 %) spray,non-aerosol 2 spray INTRANASAL BID rosuvastatin 20 mg tablet 20 mg PO DAILY Breztri Aerosphere 160-9-4.8 mcg/actuation HFA aerosol inhaler 2 inh INHALATION Q24H albuterol sulfate 90 mcg/actuation HFA aerosol inhaler 2 puff INHALATION Q4H PRN (Reason: shortness of breath or wheezing) fluticasone propionate 50 mcg/actuation spray,suspension 2 spray INTRANASAL BID omeprazole 40 mg capsule,delayed release(DR/EC) 40 mg PO .acb Print Language: Malaysian Patient Instructions: Diclofenac (By mouth), Prednisone (By mouth), Acute Low Back Pain (GEN) Forms: Portal Instructions Follow Up Appointments: Follow With TAYLOR Guzman in Dr. Barajas's office Saturday11/05/23 at 1030am
--- NOTE | 2023-11-01 09:38 | CM.NOTE ---
Discussed with pt about outpatient PT and discussing with primary care doctor. Pt verbalizes she has not tried any PT for her back pain. Pt in agreement to discussing this with primary care doctor.
--- NOTE | 2023-11-01 10:44 | PT.DAILY ---
Physical Therapy Daily Note PT Daily Note/Assess Start: 11/01/23 10:40 Freq: Status: Active Protocol: Document 11/01/23 10:40 KELLY (Rec: 11/01/23 10:44 KELLY [id number]) Physical Therapy Daily Note/Assessment Time In/Time Out Time In 10:20 Time Out 10:30 Pain In Pain Level 3 Pain Out Pain Level 8 Subjective Subjective Pt supine upon arrival. agrees to PT. Planned dc home this afternoon. New pain med working 3/10 hip pain currently. Therapeutic Activity Time Therapeutic Activity Minutes (minutes) 8 Therapeutic Activity Units 1 Therapeutic Activity Treatment Bed Mobility Ability Modified Independent Chair Transfer Ability Standby Assistance Therapeutic Activity Comments Supine>sit Jaxon. Able to melissa her shoes IND. Pt sit>stand SBA. Amb 100' without AD SBA with occ use of handrail in khanna. Pt performs stair training in stairwell. up/down 7x steps with CGA for safety. 1 UE support. Increased pain with this to 6/10. Pt amb 100' without AD but occ UE support on handrail. Returned to EOB. Pain increased to 8/10 upon completion. Demonstrates mild antalgia with short stance phase on L LE. Remains sitting at EOB with present and call light within reach. Total Physical Therapy Time Total Therapy Minutes 8 Total Physical Therapy Units 1 Summary Daily Note Summary Able to complete stair training and increased gait endurance though this does elevate pain levels. Pt would be a good candidate for OP PT for pain management and strengthening to return to PLOF.
--- NOTE | 2023-11-04 14:27 | CM.DCFOLLOWU ---
Person spoke with: patient How are you feeling? still painful, but has MRI tomorrow How is your pain? same, still having pain Did you understand your discharge instructions? yes Do you have any questions about your discharge instructions? no Were you given any prescriptions at discharge? yes Were you able to get your prescriptions filled? yes Do you understand how to take your medications as ordered? yes Do you have any questions about your follow up appointment and do you plan to keep your follow up appointment? no questions, has MRI tomorrow and will schedule follow ups Is there anything else that you would like to discuss? no Questions/Comments/Concerns/Other: none
== END 2023-11-01 10:53 | disposition home or self-care (01) ==
LOC: ER 08:53 → MS 09:34
PROVIDERS: Admitting Provider Family Medicine; Emergency Provider Emergency Medicine; PCP Internal Medicine; Visit Provider Family Medicine
DX: M54.16 Radiculopathy, lumbar region (principal); R00.0 Tachycardia, unspecified; I10 Essential (primary) hypertension; K59.00 Constipation, unspecified; J45.909 Unspecified asthma, uncomplicated; E78.00 Pure hypercholesterolemia, unspecified
CPT/HCPCS: 36415; 80053; 81001; 85025; 86140; 87086; 94640; 94761; 96374; 96375; 96376; 97162; 97165; 97530; 99285; G0378; J1170; J1885; J2270; J2405; J2919

== ENCOUNTER 2023-11-05 08:09 | Outpatient (OUT) | payer MEDICARE, SELFPAY ==
--- NOTE | 2023-11-05 08:13 | MR_ITS ---
[address] [address] Patient Name: SRINATH BAILEY MRN: [id number] date: 1955 Sex: F Assigned Patient Location: MRI Current Patient Location: Accession/Order Number: [id number] Exam Date: 11/05/2023 08:30 Report Date: 11/06/2023 08:39 At the request of: DAVID LEUNG Procedure: MR lumbar spine wo con EXAMINATION: MR lumbar spine wo con HISTORY: Acute Left Sided Low Back Pain With Sciatica M54.42 COMPARISON: CT abdomen pelvis 10/26/2023 TECHNIQUE: A variety of imaging planes and parameters were utilized for visualization of suspected pathology. FINDINGS: For the purposes of numbering, sagittal T2 image # 8 extends from the T10 vertebral body superiorly to the S3 level inferiorly. PARASPINAL AREA: Normal with no visible mass. BONES: 8 mm anterolisthesis of L4 on 5 secondary to bilateral pars interarticularis defects. No significant marrow edema adjacent the defects to suggest acute fracture. Mild anterior wedging of L1 vertebral body and prominent superior endplate invagination of the intervertebral disc. Mild marrow edema within the vertebral body. CORD/CAUDA EQUINA: Normal caliber, contour, and signal intensity. DISC LEVELS: 12-L1: Early degenerative disc disease is present without focal protrusion or neural impingement. L1-L2: Early degenerative disc disease is present without focal protrusion or neural impingement. L2-L3: Mild central canal and bilateral foramen narrowing. Mild diffuse disc bulging and mild disc at reduction. Mild degenerative facet arthropathy and ligamentum flavum thickening. L3-L4: Mild-moderate central canal and moderate bilateral foramen narrowing. Moderate diffuse disc bulging and moderate disc height reduction. Mild degenerative facet arthropathy and moderate ligamentum flavum thickening. L4-L5: Mild central canal narrowing. Moderate right and marked left foramen narrowing. 8 mm anterior listhesis of L4 on 5 with posterior pseudodisc bulging and moderate disc height reduction. Bilateral pars interarticularis defects and moderate-marked degenerative facet arthropathy. L5-S1: Early degenerative disc disease is present without focal protrusion or neural impingement. MR/MR lumbar spine wo con IMPRESSION: 1. Grade 2 anterolisthesis of L4 on 5 secondary to bilateral pars interarticularis defects. This appears to be chronic/developed mental rather than acute. 2. L1 mild compression fracture and superior endplate invagination versus Schmorl's node. Mild edema within the vertebral body suggests an acute to subacute component. 3. Multilevel mild to moderate central canal and foramen narrowing, with marked narrowing of the left L4-5 neural foramen likely contributing to patient's symptoms. Electronically authenticated by: JAVED ROQUE Date: 11/06/2023 08:39
== END 2023-11-05 08:10 | disposition home or self-care (01) ==
LOC: MRI 08:09
PROVIDERS: PCP Internal Medicine; Visit Provider Nurse Practitioner Family
DX: M54.42 Lumbago with sciatica, left side (principal); M54.32 Sciatica, left side; M48.46XA Fatigue fracture of vertebra, lumbar region, initial encounter for fracture; M54.16 Radiculopathy, lumbar region; K76.89 Other specified diseases of liver
CPT/HCPCS: 72148

== ENCOUNTER 2024-06-25 07:50 | Outpatient (OUT) | payer MEDICARE, SELFPAY ==
--- NOTE | 2024-06-25 07:57 | US_ITS ---
The [address] [address] Patient Name: SRINATH BAILEY MRN: [id number] date: 1955 Sex: F Assigned Patient Location: US Current Patient Location: US Accession/Order Number: [id number] Exam Date: 06/25/2024 09:49 Report Date: 06/25/2024 09:54 At the request of: DAVID LEUNG Procedure: US right upper quadrant LIMITED ABDOMINAL ULTRASOUND WITH ASSESSMENT OF RIGHT UPPER QUADRANT HISTORY: Elevated liver enzymes COMPARISON: None Negative ultrasound Gonzalez's sign reported. COMMON BILE DUCT: Normal caliber. No intraluminal abnormality. LIVER CONTOUR: Normal. LIVER PARENCHYMA: Hepatic steatosis HEPATIC LESION: None the prior lesion seen with CT examination not seen with today's exam. INTRAHEPATIC BILIARY DUCTAL DILATATION No ductal dilatation identified. Cholecystectomy Pancreas: Poor visualization due to overlying bowel gas. PORTAL VEIN: Normal blood flow. Liver size: Normal No RIGHT hydronephrosis identified. Suspected to 3 mm right nephrolithiasis. US/US right upper quadrant IMPRESSION: Hepatic steatosis. No biliary duct dilatation. Cholecystectomy. No hepatic lesion identified with ultrasound. The previously seen hepatic lesion can be further assessed with MRI of the liver with contrast. Impression dictated by: Leobardo Lewis M.D.06/25/2024 9:54 AM Dictation Location: [place] [address] Electronically authenticated by: [id number] Y Date: 06/25/2024 09:54
== END 2024-06-25 07:51 | disposition home or self-care (01) ==
LOC: US 07:50
PROVIDERS: PCP Internal Medicine; Visit Provider Nurse Practitioner Family
DX: R74.8 Abnormal levels of other serum enzymes (principal); K76.0 Fatty (change of) liver, not elsewhere classified
CPT/HCPCS: 76705

== ENCOUNTER 2024-07-13 08:18 | Outpatient (OUT) | payer MEDICARE, SELFPAY ==
--- NOTE | 2024-07-13 08:20 | MM_ITS ---
Patient Name: SRINATH BAILEY MR#: [id number] : 1955 Exam Date: 07/13/2024 Ordering Doctor: DR NIRMAL BARAJAS M.D. RADIOLOGY REPORT PROCEDURE: MM TOMOSYNTHESIS SCREENING BI COMPARISON: MM TOMOSYNTHESIS SCREENING BI, 07/11/2023. MG MAMM SCREEN 3D SOLIS CAD, 07/09/2022. MG MAMM SCREEN 3D SOLIS CAD, 06/09/2021. MG MAMM SOLIS SCRN W CAD DIG, 06/02/2013. INDICATIONS: Screening Calculator Name NCI Breast Cancer Risk Assessment Tool 5 Year Breast Cancer Risk 1.50% Lifetime Breast Cancer Risk 4.50% Personal Breast Cancer No Personal Ovarian Cancer No Treatments None Family Cancers Grandmother-maternal with breast cancer at age 60. LOCATION: The [facility] BREAST COMPOSITION: There are scattered areas of fibroglandular density. FINDINGS: DIAGNOSTIC CATEGORY 1--NEGATIVE. RIGHT BREAST: No significant suspicious finding. LEFT BREAST: No significant suspicious finding. RECOMMENDATIONS: ROUTINE MAMMOGRAM AND CLINICAL EVALUATION IN 12 MONTHS. PLEASE NOTE: A NORMAL MAMMOGRAM DOES NOT EXCLUDE THE POSSIBILITY OF BREAST CANCER. A CLINICALLY SUSPICIOUS PALPABLE LUMP SHOULD BE BIOPSIED. Dictated by: Bahman Benítez DO on 07/13/2024 at 16:42 Approved by: Bahman Benítez DO on 07/13/2024 at 16:48
== END 2024-07-13 08:19 | disposition home or self-care (01) ==
LOC: MAMMO 08:18
PROVIDERS: PCP Internal Medicine; Visit Provider Internal Medicine
DX: Z12.31 Encounter for screening mammogram for malignant neoplasm of breast (principal); Z80.3 Family history of malignant neoplasm of breast
CPT/HCPCS: 77063; 77067